=== PATIENT | male | born 1985 | race Caucasian/White ===

== ENCOUNTER 2021-07-07 07:20 | Outpatient (CLI) | payer OTHER | END 2021-07-07 07:50 | disposition home or self-care (01) | LOC: MRI 07:20 | PROVIDERS: ATTEND Physical Medicine & Rehabilitation | DX: M54.59 Other low back pain (principal); M54.6 Pain in thoracic spine; R10.32 Left lower quadrant pain; K40.90 Unilateral inguinal hernia, without obstruction or gangrene, not specified as recurrent; M16.12 Unilateral primary osteoarthritis, left hip | CPT/HCPCS: 72148 ==

== ENCOUNTER 2021-08-24 16:06 | Outpatient (CLI) | payer OTHER | END 2021-08-24 16:16 | disposition home or self-care (01) | LOC: RAD 16:06 | PROVIDERS: ATTEND Physical Medicine & Rehabilitation | DX: M25.512 Pain in left shoulder (principal); M75.102 Unspecified rotator cuff tear or rupture of left shoulder, not specified as traumatic ==